=== PATIENT | female | born 1985 | race Hispanic/Latino ===

== ENCOUNTER 2018-05-16 11:03 | Emergency (ER) | payer OTHER ==
[2018-05-16 11:15] VITALS: BP 132/89; PULSE 64; RESP 16; TEMP 98.6; O2SAT 100
[2018-05-16 13:15] LABS: BASO % 0.6 % (0.0-2.0); EOS # 0.1 K/uL (0.0-0.7); HEMOGLOBIN 11.9 g/dL (12.0-16.0); LYMPH # 2.1 K/uL (1.0-4.3); LYMPH % 36.8 % (20.0-40.0); MEAN CELL VOLUME 98.4 fl (81.0-99.0); MEAN CORPUSCULAR HEMOGLOBIN 32.5 pg (27.0-31.0); MEAN CORPUSCULAR HGB CONC 33.1 g/dL (33.0-37.0); MEAN PLATELET VOLUME 8.4 fl (7.2-11.7); MONO # 0.5 K/uL (0.0-0.8); NEUT # 3.1 K/uL (1.8-7.0); NEUT % 53.6 % (50.0-75.0); RBC 3.66 Mil/uL (3.80-5.20); RED CELL DISTRIBUTION WIDTH 12.6 % (11.5-14.5); WHITE BLOOD COUNT 5.8 K/uL (4.8-10.8)
[2018-05-16 13:25] LABS: BLOOD UREA NITROGEN 13 mg/dl (7-17); CALCIUM 9.3 mg/dL (8.4-10.2); GFR NON-AFRICAN AMERICAN > 60; LIPASE 97 U/L (23-300)
--- NOTE | 2018-05-16 13:36 | ED PDOC ---
HPI: Abdomen Time Seen by Provider: 05/16/18 11:52 Chief Complaint (Nursing): Abdominal Pain Chief Complaint (Provider): Abdominal Pain History Per: Patient History/Exam Limitations: no limitations Onset/Duration Of Symptoms: Days (x2) Additional Complaint(s): Marcelino Del Castillo, a 32 year old female with no past medical history, presents to the emergency room with lower abdominal pain onset 2 days. 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 She notes decreased appetite but denies nausea, vomiting, fever, dysuria or diarrhea. LNMP was 3 weeks ago, patient has an IUD and does not believe she is . No further medical complaints. Past Medical History Reviewed: Historical Data, Nursing Documentation, Vital Signs Vital Signs: Last Vital Signs Temp 98.6 F 05/16/18 11:12 Pulse 64 05/16/18 11:12 Resp 16 05/16/18 11:12 BP 132/89 05/16/18 11:12 Pulse Ox 100 05/16/18 11:12 - Medical History PMH: No Chronic Diseases - Family History Family History: States: Unknown Family Hx - Allergies Allergies/Adverse Reactions: Allergies Allergy/AdvReac Type Severity Reaction Status Date / Time No Known Allergies Allergy Verified 05/16/18 11:12 Review of Systems ROS Statement: Except As Marked, All Systems Reviewed And Found Negative Constitutional: Positive for: Other (decreased appetite). Negative for: Fever Gastrointestinal: Positive for: Abdominal Pain (lower). Negative for: Nausea, Vomiting, Diarrhea Genitourinary Female: Negative for: Dysuria Physical Exam - Reviewed Nursing Documentation Reviewed: Yes Vital Signs Reviewed: Yes - Physical Exam Appears: Positive for: Well, Non-toxic, No Acute Distress Head Exam: Positive for: ATRAUMATIC, NORMAL INSPECTION, NORMOCEPHALIC Skin: Positive for: Normal Color, Warm, DRY Eye Exam: Positive for: EOMI, Normal appearance, PERRL ENT: Positive for: Normal ENT Inspection Neck: Positive for: Normal, Painless ROM Cardiovascular/Chest: Positive for: Regular Rate, Rhythm Respiratory: Positive for: CNT, Normal Breath Sounds Gastrointestinal/Abdominal: Positive for: Normal Exam, Soft Back: Positive for: Normal Inspection Extremity: Positive for: Normal ROM Neurologic/Psych: Positive for: Alert, Oriented - Laboratory Results Result Diagrams: 05/16/18 13:05 05/16/18 13:05 - ECG O2 Sat by Pulse Oximetry: 100 (RA) Pulse Ox Interpretation: Normal Medical Decision Making Medical Decision Making: Time: 11:52 Workup: UTI vs. other abdominal pathology, basic labs, pain control, IV fluid Initial Plan: --BMP --Lipase --Magnesium --Phosphorous --CBC w/ differential --Toradol 30 mg IVP --Zofran 4 mg IVP --Urinalysis -consider CT abd if abnormal labs or no improvement Scribe Attestation: Documented by Paulina Peña, acting as a scribe for Beba Alvarez MD. Provider Scribe Attestation: All medical record entries made by the Scribe were at my direction and per sonally dictated by me. I have reviewed the chart and agree that the record accurately reflects my personal performance of the history, physical exam, medical decision making, and the department course for this patient. I have also personally directed, reviewed, and agree with the discharge instructions and disposition. 14:05 Pt with normal labs. Symptoms improved. Pt tolerating PO. To be discharged home with return parameters discussed. Disposition - Clinical Impression Clinical Impression: Abdominal discomfort - Disposition Disposition: Routine/Home Disposition Time: 14:05 Condition: IMPROVED Additional Instructions: Follow up with primary medical doctor. Your labs today show no signs of infection or abdominal abnormalities. Increase fluids and soft food as tolerated. Return to the emergency department if symptoms worsen or if new symptoms develop. Instructions: Viral Gastroenteritis, Adult (DC), Stomach Ache and Stomach Upset Forms: [employer] (Y[place]i) Print Language: DIVEHI
[2018-05-16 13:40] LABS: SQUAMOUS EPITHIAL 2 /hpf (0-5); URINE AMORPHOUS SEDIMENT RARE /ul (<OCC); URINE BACTERIA RARE (<OCC); URINE BILIRUBIN NEGATIVE (NEGATIVE); URINE BLOOD NEGATIVE (NEGATIVE); URINE CLARITY CLOUDY (Clear); URINE COLOR YELLOW (YELLOW); URINE GLUCOSE (UA) NEG (Normal); URINE LEUKOCYTE ESTERASE NEG Leu/uL (Negative); URINE PROTEIN 30 mg/dL (NEGATIVE)
== END 2018-05-16 14:18 | disposition home or self-care (01) ==
LOC: H.ER 11:03
DX: R10.30 Lower abdominal pain, unspecified (principal); R11.2 Nausea with vomiting, unspecified
CPT/HCPCS: 80048; 81003; 81025; 83690; 83735; 84100; 85025; 96374; 96375; 99283; J1885; J2405